=== PATIENT | male | born 1990 | race Caucasian/White ===

== ENCOUNTER 2022-02-23 14:31 | Outpatient (CLI) | payer OTHER, SELFPAY ==
--- NOTE | ~2022-02-23 | US_ITS ---
EXAMINATION: US soft tissue head and neck DATE: 02/23/2022 16:18 INDICATION: Localized enlarged lymph nodes. TECHNIQUE: Multiple grayscale and Doppler ultrasound images of the neck were obtained. COMPARISON: None FINDINGS: There is a normal subcutaneous lymph node anterior to the left shoulder. IMPRESSION: 1. Normal subcutaneous lymph node anterior to the left shoulder in the patient's area of concern. Reviewed, dictated and finalized at location A. IMPRESSION: 1. Normal subcutaneous lymph node anterior to the left shoulder in the patient' s area of concern.
== END 2022-02-23 14:32 | disposition home or self-care (01) ==
PROVIDERS: PCP Internal Medicine Infectious Disease; Visit Provider Internal Medicine Infectious Disease
DX: R59.0 Localized enlarged lymph nodes (principal)
CPT/HCPCS: 76536